=== PATIENT | female | born 1945 | race Caucasian/White ===

== ENCOUNTER → 2017-07-28 | Day surgery (SDC) | payer OTHER ==
[2017-07-13 13:09] VITALS: BMI 54.0
--- NOTE | 2017-07-13 14:08 | PAT Medication Instructions ---
Service Date Jul 13, 2017. Current Home Medication List Acetaminophen (Tylenol Arthritis Ext Rel), 2 TABS PO BID Albuterol Hfa (Ventolin Hfa), Unknown Dose INH Q6H PRN for Shortness of Breath Aspirin (Aspirin Ec), 1 TAB PO QAM Atorvastatin (Lipitor), 1 TAB PO QAM Buspirone Hcl (Buspar), 5 MG PO BID Cholecalciferol (D-5000), 1 TAB PO QAM Homeopathic Products (Leg Cramp Relief), 1 TAB PO HS Insulin Aspart (Novolog Flexpen), 1 DOSE SC TID Insulin Glargine (Lantus), 48 UNITS SC HS Levothyroxine Sodium (Levothyroxine Sodium), 350 MCG PO QAM Loratadine (Claritin), 10 MG PO QAM Metoprolol Succ (Toprol Xl) (Toprol-Xl), 50 MG PO QAM Multivitamin (Multivitamin), 1 TAB PO QAM Nitroglycerin (Nitrostat), 0.4 MG UT PRN Nystatin (Topical) (Nystatin), 1 Oxybutynin Chloride (Ditropan), 5 MG PO QAM Sitagliptin (Januvia), 25 MG PO DAILY Sulfasalazine (Sulfazine), 1,000 MG PO BID Tiotropium [place] (Spiriva Handihaler), Unknown Dose INH QAM Torsemide (Demadex), 20 MG PO QAM Valsartan (Diovan), 320 MG PO QAM Vitamin E (Vitamin E 400 Iu), 400 INTER.UNIT PO QAM Medication Instructions For Your Scheduled Surgery - Continue as directed: Nitroglycerin (Nitrostat), 0.4 MG UT PRN - Hold the following medications 2 weeks prior to surgery: Vitamin E (Vitamin E 400 Iu), 400 INTER.UNIT PO QAM Homeopathic Products (Leg Cramp Relief), 1 TAB PO HS - Check with your surgeon for instructions: Aspirin (Aspirin Ec), 1 TAB PO QAM - Hold the following medications 24 hours prior to surgery: Nystatin (Topical) (Nystatin), 1 - Hold the following medications the morning of surgery: Valsartan (Diovan), 320 MG PO QAM Torsemide (Demadex), 20 MG PO QAM Sitagliptin (Januvia), 25 MG PO DAILY Insulin Aspart (Novolog Flexpen), 1 DOSE SC TID Loratadine (Claritin), 10 MG PO QAM Multivitamin (Multivitamin), 1 TAB PO QAM Cholecalciferol (D-5000), 1 TAB PO QAM - Take the following medications the morning of surgery with a sip of water: Atorvastatin (Lipitor), 1 TAB PO QAM Tiotropium [place] (Spiriva Handihaler), Unknown Dose INH QAM Levothyroxine Sodium (Levothyroxine Sodium), 350 MCG PO QAM Albuterol Hfa (Ventolin Hfa), Unknown Dose INH Q6H PRN for Shortness of Breath ( if needed, AND BRING IT WITH YOU THE DAY OF SURGERY) Metoprolol Succ (Toprol Xl) (Toprol-Xl), 50 MG PO QAM Oxybutynin Chloride (Ditropan), 5 MG PO QAM Sulfasalazine (Sulfazine), 1,000 MG PO BID Acetaminophen (Tylenol Arthritis Ext Rel), 2 TABS PO BID Buspirone Hcl (Buspar), 5 MG PO BID - Take the following medications as scheduled the night before surgery: Insulin Glargine (Lantus), 48 UNITS SC HS Insulin Aspart (Novolog Flexpen), 1 DOSE SC TID Sulfasalazine (Sulfazine), 1,000 MG PO BID Acetaminophen (Tylenol Arthritis Ext Rel), 2 TABS PO BID Buspirone Hcl (Buspar), 5 MG PO BID Albuterol Hfa (Ventolin Hfa), Unknown Dose INH Q6H PRN for Shortness of Breath ( if needed) If you have any questions please call us at [phone] or [phone] or [phone]
[2017-07-13 15:09] LABS: BASO % 0.1 %; BASO ABS # 0.01 K/uL (0-0.2); COMPLETE YES; EOS % 1.7 %; HEMATOCRIT 41.5 % (37-47); IG% 0.1 %; LYMPH % 16.6 %; LYMPH ABS # 1.16 K/uL (1.2-3.4); MEAN CELL VOLUME 101.7 fL (80-100); MEAN CORPUSCULAR HEMOGLOBIN 33.3 pg (25-34); MEAN CORPUSCULAR HGB CONC 32.8 g/dl (32-36); MEAN PLATELET VOLUME 9.8 fL (7.4-10.4); MONO % 9.9 %; NEUT % 71.6 %; PLATELET COUNT 163 K/uL (130-400); RED BLOOD COUNT 4.08 M/uL (4.2-5.4); WHITE BLOOD COUNT 6.99 K/uL (4.8-10.8)
[2017-07-13 15:17] LABS: URINE APPEARANCE CLEAR (CLEAR); URINE BILIRUBIN NEG (NEG); URINE COLOR YELLOW; URINE EPITHELIAL CELL AUTO >30 /lpf (0-5); URINE NITRITE NEG (NEG); URINE SPECIFIC GRAVITY 1.018 (1.000-1.030); UROBILINOGEN NEG (NEG); ZZUR CULT IF INDIC CLEAN CATCH YES
[2017-07-13 15:19] LABS: MANUAL MICROSCOPIC REQUIRED? NO; REVIEW REQ? NO
[2017-07-13 15:20] LABS: PARTIAL THROMBOPLASTIN RATIO 1.1; PROTHROMBIN TIME (PATIENT) 11.1 SECONDS (9.0-12.0)
[2017-07-13 15:41] LABS: BUN/CREATININE RATIO 18.3 (10-20); CREATININE 1.7 mg/dl (0.60-1.20); POTASSIUM 4.7 mmol/L (3.5-5.1)
--- NOTE | 2017-07-25 17:50 | History and Physical ---
History & Physical Date Jul 25, 2017. Chief Complaint Left hand numbness and tingling History of Present Illness The patient is a 72 year old female with complaints of left hand numbness and tingling. She states it goes to her thumb, index and middle finger. She has tried splints and PT with no relief. She would like to proceed with a left carpal tunnel release. Past Medical/Surgical History Medical Problems: (1) Mechanical complication of internal orthopedic device Hypertension, hypercholesterolemia, sleep apnea, IDDM, hypothyroidism, CKD PSHx: Bilateral TKA, back surgery x2, tonsillectomy Additional History Hepatic Disease: No Endocrine Disorder: No Kidney Disease: Yes Hypertension: Yes Heart Disease: No Bleeding Tendencies: No Infectious Diseases: No Allergies Coded Allergies: Gabapentin (Verified Allergy, Severe, "MADE LEGS SWELL", 07/13/17) "THEY SEEPED FLUIDS OUT OF THEM" Adhesives (Verified Allergy, Unknown, HIVES-PAIN PATCH, 07/13/17) pain patch Meloxicam (Verified Allergy, Unknown, "AFFECTED BY KIDNEY'S", 07/13/17) Home Medications Scheduled Acetaminophen (Tylenol Arthritis Ext Rel), 2 TABS PO BID Aspirin (Aspirin Ec), 1 TAB PO QAM Atorvastatin (Lipitor), 1 TAB PO QAM Buspirone Hcl (Buspar), 5 MG PO BID Cholecalciferol (D-5000), 1 TAB PO QAM Homeopathic Products (Leg Cramp Relief), 1 TAB PO HS Insulin Aspart (Novolog Flexpen), 1 DOSE SC TID Insulin Glargine (Lantus), 48 UNITS SC HS Levothyroxine Sodium (Levothyroxine Sodium), 350 MCG PO QAM Loratadine (Claritin), 10 MG PO QAM Metoprolol Succ (Toprol Xl) (Toprol-Xl), 50 MG PO QAM Multivitamin (Multivitamin), 1 TAB PO QAM Nitroglycerin (Nitrostat), 0.4 MG UT PRN Oxybutynin Chloride (Ditropan), 5 MG PO QAM Sitagliptin (Januvia), 25 MG PO DAILY Sulfasalazine (Sulfazine), 1,000 MG PO BID Tiotropium [place] (Spiriva Handihaler), Unknown Dose INH QAM Torsemide (Demadex), 20 MG PO QAM Valsartan (Diovan), 320 MG PO QAM Vitamin E (Vitamin E 400 Iu), 400 INTER.UNIT PO QAM Scheduled PRN Albuterol Hfa (Ventolin Hfa), Unknown Dose INH Q6H PRN for Shortness of Breath Miscellaneous Medications Nystatin (Topical) (Nystatin), 1 Physical Examination Skin: warm/dry, no rash Eyes: normal inspection, EOMI ENT: normal ENT inspection Head: normocephalic, atraumatic Neck: supple, no adenopathy Respiratory/Chest: lungs clear, normal breath sounds Cardiovascular: regular rate, rhythm, no murmur Abdomen / GI: normal bowel sounds, non tender Extremities: normal inspection, + pertinent finding ((+) Tinel sign over the median nerve, ) Neurologic/Psych: no motor/sensory deficits, alert Diagnosis Left Carpal tunnel syndrome Plan of Treatment Patient is scheduled for a left carpal tunnel release. She has tried conservative therapies with no relief. Risks and benefits to surgery were discussed. Patient understands the risks and benefits and wishes to proceed. All questions were answered to their satisfaction.
[~2017-07-28] VITALS: Ht 167.6 cm; Wt 152.1 kg
[~2017-07-28] MED LIST: ACET1TAB84 PO; ASPI81TA28 PO; ATOR-24 PO; ATROPINE SULFATE 0.1 MG/ML 5ML SYR IV PRN; BUPIVACAINE/EPINEPHRINE 0.5% MPF 1:200,000 30 ML VIAL ONE; BUSP15TA70 PO; CEFAZOLIN 3000MG IV PUSH 15 ML IV SCH; CHOLTAB11 PO; CLR10 PO; DTR/5 PO; EpHEDrine SULFATE INJ 50 MG/ML AMP IV PRN; FENTANYL CITRATE INJ 50 MCG/1 ML 2 ML VIAL IV PRN; FENTANYL CITRATE INJ 50 MCG/1 ML 2 ML VIAL ONE; HOME1TAB18 PO; HYDR-5688 PO; INSDGI SC; KETAMINE HCL INJ 50 MG/ML 10 ML VIAL ONE; LEVO200T6 PO; LIDOCAINE HCL 2% 2 ML VIAL (20MG/ML) ONE; METO50TA7 PO; MIDAZOLAM HCL 1 MG/ML 2ML VIAL ONE; MULT-506 PO; NTRGSL/4 UT; NVLGI/PEN SC; NYST1POW7; PROPOFOL IV EMULSION 10 MG/ML 20 ML VIAL IV ONE; SITA25TA PO; SODIUM CHLORIDE 0.9% 1000ML 1,000 ML IV SCH; SPRIN/30 INH; SULF500T8 PO; TORS20TA2 PO; VALS320T PO; VITA400C3 PO; VNTHFA/IN INH
[2017-07-28 10:00] VITALS: BMI 54.0
[2017-07-28 10:20] VITALS: BP 157/104; PULSE 80; TEMP 36.7; O2SAT 95; Ht 167.6 cm; Wt 152.1 kg
--- NOTE | 2017-07-28 10:32 | History & Physical Bridge Note ---
H&P Re-Evaluation Bridge Note: I have examined the patient, reviewed the History & Physical and in the interval since the performance of the History & Physical I have noted the following changes of clinical significance: No changes noted
[2017-07-28 12:10] VITALS: BP 143/93; PULSE 88; TEMP 36.5; O2SAT 98
--- NOTE | 2017-07-28 12:23 | [facility] Operative Report ---
Operative Report Operative Date Jul 28, 2017. Pre-Operative Diagnosis L CTS Post-Operative Diagnosis same Procedure(s) Performed L [facility] Surgeon Cuco Mechanical Equipment Test Engineer Surgeon(s) 0 Estimated Blood Loss 1 cc Findings above Specimens 0 Drains 0 Anesthesia local mac Complication(s) None Disposition Recovery Room / PACU Indications 72-year-old female with long-standing numbness tingling left hand. She's failed conservative measures including bracing. EMG confirms carpal tunnel syndrome. She wishes to proceed with left carpal tunnel release. Description of Procedure The patient has failed conservative measures including nocturnal splinting. After failing conservative measures, the patient wished to proceed with a carpal tunnel release. Risks, benefits and alternatives to surgery including, but not limited to, infection, DVT, pain, stiffness, need for revision surgery, failure to relieve all symptoms, damage to blood vessels, damage to nerves, risk of anesthesia were discussed with the patient and they wished to proceed. Patient was identified. Laterality was confirmed and marked. The patient received a preoperative antibiotic. They were transferred to the operating room and placed in the supine position and given IV sedation. The upper arm had a well padded tourniquet applied and then prepped and draped in the usual standard manner with ChloraPrep. The limb was exsanguinated. The tourniquet was inflated. Incision site for the carpal tunnel release was then anesthetized with combination of lidocaine and Marcaine. I made a longitudinal incision along the radial border of the fourth ray. I sharply incised through the skin the utilizing Bovie electrocautery to achieve hemostasis. I dissected through the palmaris fascia and identified the transverse carpal ligament. I made a complete release of the transverse carpal ligament distally and then released proximally with blunt-tipped scissors. I confirmed the complete release with digital as well as visual inspection. The wound was thoroughly irrigated. The subcutaneous tissue was closed with buried 5-0 Monocryl and the skin with 4-0 Vicryl rapide. A sterile dressing was applied and the tourniquet was released. All needle and sponge counts were correct at the end of the procedure. The patient was transferred to the PACU in stable condition without apparent complication. I attest to the content of the Intraoperative Record and any orders documented therein. Any exceptions are noted below.
--- NOTE | 2017-07-28 12:25 | Discharge Instructions ---
Discharge Instructions Date of Service Jul 28, 2017. Visit Reason for Visit: Left Wrist Carpal Tunnel Syndrome Discharge Discharge Diagnosis / Problem: Left Carpal Tunnel Syndrome Discharge Goals Goal(s): Decrease discomfort, Improve function Activity Recommendations Activity Limitations: per Instructions/Follow-up section Anesthesia . Post Anesthesia Instructions: If you have had General Anesthesia or IV Sedation: * Do not drive today. * Resume driving when surgeon permits. * Do not make important decisions or sign legal documents today. * Call surgeon for: 1. Temperature elevations greater than 101 degrees F. 2. Uncontrollable pain. 3. Excessive bleeding. 4. Persistent nausea and vomiting. 5. Medication intolerance (nausea, vomiting or rash). * For nausea and vomiting use only clear liquids such as: tea, soda, bouillon until nausea subsides, then gradually increase diet as tolerated. * If you have any concerns or questions, call your surgeon's office. If physician is unavailable and it is an emergency, call 911 or go to the nearest emergency room. . Instructions / Follow-Up Instructions / Follow-Up ACTIVITY RECOMMENDATIONS: * Avoid lifting anything heavier than a medium water glass until your first post operative visit. SPECIAL CARE INSTRUCTIONS: * Change your dressing in 48 hours. * Some drainage onto the dressing may occur. This is normal. * If the bandage feels excessively tight, you may loosen the elastic bandage. Then call the physician's office for further instructions. * If possible, keep your hand elevated above the level of your heart for the first 2 post operative days. You may use a sling if necessary. * You should move your fingers regularly (50-100 motions per hour) unless otherwise instructed. SPECIAL PRECAUTIONS: * If you notice increased drainage, fever over 101 degrees F. or severe, unremitting pain, call your physician/office at . * You may have been prescribed pain medication. If you experience nausea and/or skin rash, discontinue this medication and contact our office for an alternative medication. FOLLOW UP VISIT: If appointment is not already scheduled: Please call [facility] to make a follow-up appointment after your surgery at . Diet Recommendations Recommended Home Diet: resume previous diet Pending Studies Studies pending at discharge: no Medical Emergencies . Who to Call and When: Medical Emergencies: If at any time you feel your situation is an emergency, please call 911 immediately. . Non-Emergent Contact Non-Emergency issues call your: Surgeon Call Non-Emergent contact if: temperature is above 101.5, your pain is not controlled, your pain is worsening, wound has increased drainage, wound has increased redness . . "Provider Documentation" section prepared by Eliel Winslow. . [place] Drug Monitoring Program Search Results: patient reviewed within database, no issues identified
[2017-07-28 12:40] VITALS: BP 147/69; PULSE 92; TEMP 36.6; O2SAT 96
--- NOTE | 2017-07-28 13:08 | Anesthesiology Progress Note ---
Anesthesia Post Op Note Date & Time Jul 28, 2017 at 13:08 Vital Signs Pain Intensity: 0 Vital Signs Past 12 Hours Date Time Temp Pulse Resp B/P (MAP) Pulse Ox O2 Delivery O2 Flow Rate FiO2 07/28/17 12:40 36.6 92 18 147/69 96 Room Air 07/28/17 12:10 36.5 88 18 143/93 98 Room Air 07/28/17 10:20 36.7 80 20 157/104 (121) 95 Room Air Notes Mental Status: alert / awake / arousable, participated in evaluation Pt Amnestic to Procedure: Yes Nausea / Vomiting: adequately controlled Pain: adequately controlled Airway Patency, RR, SpO2: stable & adequate BP & HR: stable & adequate Hydration State: stable & adequate Anesthetic Complications: no major complications apparent
== END | disposition home or self-care (01) ==
LOC: C.ACU 09:41
PROVIDERS: ATTEND Orthopaedic Surgery
DX: G56.02 Carpal tunnel syndrome, left upper limb (principal); E11.22 Type 2 diabetes mellitus with diabetic chronic kidney disease; I12.9 Hypertensive chronic kidney disease with stage 1 through stage 4 chronic kidney disease, or unspecified chronic kidney disease; N18.9 Chronic kidney disease, unspecified; E78.5 Hyperlipidemia, unspecified; E03.9 Hypothyroidism, unspecified; G47.30 Sleep apnea, unspecified; Z79.899 Other long term (current) drug therapy; Z79.82 Long term (current) use of aspirin